=== PATIENT | male | born 1940 | race Caucasian/White ===

== ENCOUNTER 2016-10-23 08:07 | Outpatient (CLI) | payer MEDICARE, BC ==
[2016-10-23 09:15] LABS: Albumin 3.4 g/dL (3.4-4.8); Anion Gap 15 mmol/L (10-20); BUN (Urea Nitrogen) 24 mg/dL (8.4-25.7); Bilirubin, Direct 0.3 mg/dL (0.1-0.3); Bilirubin, Total 0.9 mg/dL (0.2-1.2); Calc. Creatinine Clearance 0 mL/min (70-130); Calcium 9.1 mg/dL (7.8-10.44); Carbon Dioxide 25 mmol/L (23-31); Chloride 106 mmol/L (98-107); Cholesterol 176 mg/dL (< 200 Desired); Estimated GFR-MDRD 71; Glucose 114 mg/dL (83-110); Potassium 4.5 mmol/L (3.5-5.1); Protein, Total 6.4 g/dL (5.8-8.1); Sodium 141 mmol/L (136-145)
[2016-10-23 09:16] LABS: ALT (SGPT) 17 U/L (0-55); AST (SGOT) 22 U/L (5-34); Alkaline Phosphatase 74 U/L (40-150); Cardiac Risk 2.1 (Less than 4.5); HDL Cholesterol 85 mg/dL (>60 Neg Risk); LDL Cholesterol, Calculated 81 mg/dL; Triglycerides 49 mg/dL (Less than 150)
== END 2016-10-23 08:08 | disposition home or self-care (01) ==
LOC: MADLAB 08:07
PROVIDERS: ATTEND Internal Medicine
DX: E78.4 Other hyperlipidemia (principal); I42.8 Other cardiomyopathies
CPT/HCPCS: 36415; 80048; 80061; 80076; 83880

== ENCOUNTER 2017-05-24 07:50 | Outpatient (CLI) | payer MEDICARE, BC ==
[2017-05-24 08:15] LABS: #Basophils 0.1 thou/uL (0.0-0.2); #Eosinphils 0.1 thou/uL (0.0-0.7); #Lymphocytes 1.7 thou/uL (1.20-3.40); #Monocytes 0.6 thou/uL (0.11-0.59); #Neutrophils 3.2 thou/uL (1.40-6.50); %Basophils 1.7 % (0.0-1.0); %Eosinophils 1.8 % (0.0-10.0); %Lymphocytes 30.3 % (21.0-51.0); %Monocytes 10.8 % (0.0-10.0); %Neutrophils 55.3 % (42.0-75.0); Hemoglobin 12.9 g/dL (14.0-18.0); Mean Corpuscular Hemoglobin 28.6 pg (27.0-31.0); Mean Corpuscular Volume 89.3 fl (80.0-94.0); Mean Platelet Volume 8.8 fL (7.4-10.4); Platelet Count 157 thou/uL (130-400); RBC Distribution Width 12.4 % (11.5-14.5); Red Blood Cell (RBC) Count 4.51 mill/uL (4.70-6.10); White Blood Cell (WBC) Count 5.7 thou/uL (4.8-10.8)
[2017-05-24 09:00] LABS: ALT (SGPT) 22 U/L (8-55); AST (SGOT) 22 U/L (5-34); Albumin 3.5 g/dL (3.4-4.8); Alkaline Phosphatase 73 U/L (40-150); Anion Gap 13 mmol/L (10-20); BUN (Urea Nitrogen) 29 mg/dL (8.4-25.7); Bilirubin, Total 0.7 mg/dL (0.2-1.2); Calc. Creatinine Clearance 0 mL/min (70-130); Calcium 9.6 mg/dL (7.8-10.44); Carbon Dioxide 24 mmol/L (23-31); Cardiac Risk 2.4 (Less than 4.5); Chloride 109 mmol/L (98-107); Cholesterol 168 mg/dl (< 200 Desired); Estimated GFR-MDRD 45; Globulin 3.4 g/dL (2.4-3.5); Glucose 103 mg/dL (83-110); HDL Cholesterol 71 mg/dL (>60 Neg Risk); LDL Cholesterol, Calculated 87 mg/dL; Potassium 4.5 mmol/L (3.5-5.1); Protein, Total 6.9 g/dL (5.8-8.1); Sodium 141 mmol/L (136-145); Triglycerides 50 mg/dL (Less than 150)
== END 2017-05-24 07:51 | disposition home or self-care (01) ==
LOC: MADLAB 07:50
PROVIDERS: ATTEND Internal Medicine
DX: I42.0 Dilated cardiomyopathy (principal); E78.01 Familial hypercholesterolemia
CPT/HCPCS: 36415; 80053; 80061; 85025

== ENCOUNTER 2018-11-29 10:47 | Emergency (ER) | payer MEDICARE, BC ==
[2018-11-29] MEDS ORDERED: Adacel (T-DAP) 0.5 ML SYRINGE ONE (11:34)
--- NOTE | 2018-11-29 11:56 | RAD ---
RIGHT WRIST FOUR VIEWS: History: Fall with injury and pain. FINDINGS: Carpals appear intact. There are degenerative changes noted with irregularity of the radial carpal juan f int. There is triangular fibrocartilage calcification. Mild spurring from the dorsal carpals. IMPRESSION: No acute fracture. POS: [facility]
== END 2018-11-29 12:10 | disposition home or self-care (01) ==
LOC: MADERS 10:47
DX: S60.211A Contusion of right wrist, initial encounter (principal); I50.9 Heart failure, unspecified; W01.0XXA Fall on same level from slipping, tripping and stumbling without subsequent striking against object, initial encounter
CPT/HCPCS: 90471; 90715